=== PATIENT | male | born 1935 | race African-American/Black ===

== ENCOUNTER 2019-11-07 15:21 | Emergency (ER) | payer OTHER | END 2019-11-07 20:21 | disposition short-term general hospital (02) | LOC: ERS 15:21 | DX: K92.2 Gastrointestinal hemorrhage, unspecified (principal); G30.9 Alzheimer's disease, unspecified; F02.80 Dementia in other diseases classified elsewhere, unspecified severity, without behavioral disturbance, psychotic disturbance, mood disturbance, and anxiety; I12.9 Hypertensive chronic kidney disease with stage 1 through stage 4 chronic kidney disease, or unspecified chronic kidney disease; N18.9 Chronic kidney disease, unspecified; M10.9 Gout, unspecified; Z79.899 Other long term (current) drug therapy; Z79.82 Long term (current) use of aspirin | CPT/HCPCS: 99285 ==